=== PATIENT | male | born 1980 | race Caucasian/White ===

== ENCOUNTER 2016-12-18 09:41 | Emergency (ER) | payer OTHER ==
[~2016-12-18] VITALS: Ht 180.3 cm; Wt 103.2 kg
[2016-12-18 10:40] LABS: BASOPHIL % 0.4 % (0-2); PLATELET COUNT 303 x10^3mcL (130-400); RED CELL DISTRIBUTION WIDTH 13.6 % (11.5-14.5)
[2016-12-18 10:49] LABS: CALCIUM 8.3 mg/dL (8.5-10.1); CHLORIDE SERUM 105 mmol/L (98-107); GFR1 > 60 mL/min; GLUCOSE SERUM 100 mg/dL (74-106); POTASSIUM SERUM 4.2 mmol/L (3.5-5.1); SODIUM SERUM 140 mmol/L (136-145)
[2016-12-18 10:56] LABS: ALBUMIN 3.7 g/dL (3.4-5.0); ALKALINE PHOSPHATASE 95 U/L (46-116); ALT/SGPT 75 U/L (16-63); AST/SGOT 32 U/L (15-37); BILIRUBIN TOTAL 0.5 mg/dL (0.20-1.00); TOTAL PROTEIN, SERUM 7.3 g/dL (6.4-8.2)
[2016-12-18 11:25] LABS: AMPHETAMINE QUAL UR NONE DETECTED (NEG <=1000)
[2016-12-18 12:23] VITALS: BP 126/78
== END 2016-12-18 12:23 | disposition home or self-care (01) ==
LOC: ED 09:41
PROVIDERS: Emergency Medicine
DX: R07.89 Other chest pain (principal); F17.200 Nicotine dependence, unspecified, uncomplicated; Z71.6 Tobacco abuse counseling
CPT/HCPCS: 36415; 83880; 99406; Q0092

== ENCOUNTER 2017-06-25 17:17 | Emergency (ER) | payer OTHER ==
[~2017-06-25] VITALS: Ht 182.9 cm; Wt 102.5 kg
[2017-06-25 17:21] VITALS: Ht 182.9 cm; Wt 102.5 kg
[2017-06-25 19:12] VITALS: BP 142/86
== END 2017-06-25 19:12 | disposition home or self-care (01) ==
LOC: ED 17:17
DX: J06.9 Acute upper respiratory infection, unspecified (principal); F17.200 Nicotine dependence, unspecified, uncomplicated

== ENCOUNTER 2018-05-21 12:58 | Emergency (ER) | payer OTHER ==
[~2018-05-21] VITALS: Ht 185.4 cm; Wt 104.3 kg
[2018-05-21 13:39] VITALS: BP 145/94; Ht 185.4 cm; Wt 104.3 kg
== END 2018-05-21 14:35 | disposition home or self-care (01) ==
LOC: ED 12:58
DX: H60.502 Unspecified acute noninfective otitis externa, left ear (principal); F41.9 Anxiety disorder, unspecified; F20.9 Schizophrenia, unspecified

== ENCOUNTER 2018-08-27 09:04 | Emergency (ER) | payer MEDICAID ==
[~2018-08-27] VITALS: Ht 188 cm; Wt 102.5 kg
[2018-08-27 09:10] VITALS: BP 117/76; Ht 188 cm; Wt 102.5 kg
[2018-08-27 10:37] LABS: microscopic required? YES; urine erythrocyte 3+ (NEGATIVE)
== END 2018-08-27 10:44 | disposition home or self-care (01) ==
LOC: ED 09:04
DX: N30.01 Acute cystitis with hematuria (principal); F41.9 Anxiety disorder, unspecified; F20.9 Schizophrenia, unspecified

== ENCOUNTER 2019-03-07 21:56 | Emergency (ER) | payer OTHER ==
[~2019-03-07] VITALS: Ht 185.4 cm; Wt 103.4 kg
[2019-03-07 22:05] VITALS: BP 127/77; Ht 185.4 cm; Wt 103.4 kg
== END 2019-03-07 23:04 | disposition home or self-care (01) ==
LOC: ED 21:56
DX: S13.4XXA Sprain of ligaments of cervical spine, initial encounter (principal); M54.5 Low back pain; F20.9 Schizophrenia, unspecified; F41.9 Anxiety disorder, unspecified; V49.09XA Driver injured in collision with other motor vehicles in nontraffic accident, initial encounter; Y93.I9 Activity, other involving external motion; Y92.413 State road as the place of occurrence of the external cause; Y99.8 Other external cause status
CPT/HCPCS: J1885

== ENCOUNTER 2019-05-20 13:34 | Emergency (ER) | payer OTHER ==
[~2019-05-20] VITALS: Ht 180.3 cm; Wt 103.9 kg
[2019-05-20 13:49] VITALS: Ht 180.3 cm; Wt 103.9 kg
[2019-05-20 14:45] VITALS: BP 135/87
== END 2019-05-20 15:18 | disposition home or self-care (01) ==
LOC: ED 13:34
DX: J06.9 Acute upper respiratory infection, unspecified (principal); F17.210 Nicotine dependence, cigarettes, uncomplicated; M79.10 Myalgia, unspecified site
CPT/HCPCS: Q0092

== ENCOUNTER 2019-11-21 11:09 | Emergency (ER) | payer OTHER ==
[~2019-11-21] VITALS: Ht 182.9 cm; Wt 104.3 kg
[2019-11-21 11:14] VITALS: Ht 182.9 cm; Wt 104.3 kg
[2019-11-21 11:40] VITALS: BP 164/97
== END 2019-11-21 11:40 | disposition home or self-care (01) ==
LOC: ED 11:09
DX: R05 Cough (principal); F17.210 Nicotine dependence, cigarettes, uncomplicated
CPT/HCPCS: 99406

== ENCOUNTER 2020-04-09 16:08 | Emergency (ER) | payer OTHER ==
[~2020-04-09] VITALS: Ht 182.9 cm; Wt 104.3 kg
[2020-04-09 16:12] VITALS: BP 148/96; Ht 182.9 cm; Wt 104.3 kg
== END 2020-04-09 16:47 | disposition left against medical advice (07) ==
LOC: ED 16:08
DX: B34.9 Viral infection, unspecified (principal); R10.9 Unspecified abdominal pain; Z90.89 Acquired absence of other organs

== ENCOUNTER 2020-04-09 18:48 | Emergency (ER) | payer OTHER ==
[~2020-04-09] VITALS: Ht 182.9 cm; Wt 104.3 kg
[2020-04-09 19:12] VITALS: BP 118/78; Ht 182.9 cm; Wt 104.3 kg
== END 2020-04-09 22:45 | disposition left against medical advice (07) ==
LOC: ED 18:48
PROVIDERS: Student in an Organized Health Care Education/Training Program
DX: R07.89 Other chest pain (principal); R05 Cough; R43.8 Other disturbances of smell and taste; R11.0 Nausea; R10.30 Lower abdominal pain, unspecified; J02.9 Acute pharyngitis, unspecified

== ENCOUNTER 2020-04-12 03:20 | Emergency (ER) | payer OTHER, SELFPAY ==
[~2020-04-12] VITALS: Ht 182.9 cm; Wt 101.8 kg
[2020-04-12 03:26] VITALS: Ht 182.9 cm; Wt 101.8 kg
[2020-04-12 03:58] LABS: BASOPHIL % 0.2 % (0-2); PLATELET COUNT 337 x10^3mcL (130-400); RED CELL DISTRIBUTION WIDTH 13.1 % (11.5-14.5)
[2020-04-12 04:14] LABS: CALCIUM 8.5 mg/dL (8.5-10.1); CARBON DIOXIDE 23.4 mmol/L (21-32); CREATININE SERUM 1.4 mg/dL (0.7-1.3); POTASSIUM SERUM 3.8 mmol/L (3.5-5.1)
[2020-04-12 04:18] LABS: ALBUMIN 3.4 g/dL (3.4-5.0); BILIRUBIN TOTAL 0.37 mg/dL (0.20-1.00); TOTAL PROTEIN, SERUM 7.5 g/dL (6.4-8.2)
[2020-04-12 07:00] VITALS: BP 111/74
[2020-04-12 08:44] LABS: microscopic required? YES; urine erythrocyte 1+ (NEGATIVE)
== END 2020-04-12 07:00 | disposition home or self-care (01) ==
LOC: ED 03:20
PROVIDERS: Emergency Medicine
DX: N39.0 Urinary tract infection, site not specified (principal); Z20.828 Contact with and (suspected) exposure to other viral communicable diseases
CPT/HCPCS: J0696; U0003